=== PATIENT | male | born 1985 | race Caucasian/White ===

== ENCOUNTER 2017-02-21 12:25 | Emergency (ER) | payer BC ==
[2017-02-21] MEDS ORDERED: Take Home: Naproxen 500 MG Tab, 4 Tab Pack PO ONE (13:12)
[2017-02-21] MEDS ORDERED: Take Home: Cyclobenzaprine 10 MG Tab, 4 Tab Pack PO ONE (13:12)
[2017-02-21 14:06] VITALS: BP 138/61
--- NOTE | 2017-03-04 02:11 | ER ---
Date of Service: 02/21/2017 SUBJECTIVE: Manoj presents to emergency room with complaints of pain to his left hip/buttocks area. He states he has been experiencing this for approximately 4 days. He states that he has had intermittent low back pain in the past and does see a chiropractor for it. He states that he also has been taking some Flexeril but states that he is out of these medications. He denies any recent trauma. He states he is not experiencing any saddle anesthesia or urinary incontinence or retention. PAST MEDICAL HISTORY: 1. Depression. 2. Anxiety. MEDICATIONS: 1. Trazodone. 2. Paroxetine. 3. Multivitamin. 4. Flovent. ALLERGIES: Solarcaine. REVIEW OF SYSTEMS: Again denies any saddle anesthesia or incontinence of urine or feces. PHYSICAL EXAMINATION: General: This is a 31-year-old male patient, who is in no acute distress. Vital Signs: Blood pressure is 138/61, heart rate is 82, temp is 37.1, respiratory rate 16. Skin: Warm, pink, and dry. Musculoskeletal: No obvious step-offs or deformity noted. There is possibility of some minimal muscle tension in his lumbar spine. He has increased discomfort with flexion and extension of his lumbar spine as well as with lateral bending. Straight leg raise is negative bilaterally. Patellar reflexes are 2+. Remainder of his physical examination is within normal limits. ASSESSMENT: Low back strain. PLAN: The patient will be discharged. I did refer him to Physical Therapy. I did give him a prescription for Flexeril 10 mg one 3 times daily as needed for pain. Also, we did prescribe him naproxen 500 mg with instructions to take 1 twice daily for continued discomfort. Again would like to have him follow up with Physical Therapy and his primary care provider in the next 7 to 10 days. All questions were answered. PHILIPK: 03/04/2017 01:28:05 MODL: 03/04/2017 02:05:28 /[id number]
== END 2017-02-21 13:29 | disposition home or self-care (01) ==
LOC: VM.ED 12:25
DX: S39.012A Strain of muscle, fascia and tendon of lower back, initial encounter (principal); F41.9 Anxiety disorder, unspecified; F32.9 Major depressive disorder, single episode, unspecified; X58.XXXA Exposure to other specified factors, initial encounter
CPT/HCPCS: 99283; A9270